=== PATIENT | female | born 1975 | race Hispanic/Latino ===

== ENCOUNTER → 2023-02-20 | Outpatient (CLI) | payer MEDICAID ==
[~2023-02-20] MED LIST: IOHEXOL-350 75 ML VIAL IV ONE
== END | disposition home or self-care (01) ==
LOC: RAH 10:30
PROVIDERS: ATTEND Internal Medicine Gastroenterology
DX: R10.9 Unspecified abdominal pain (principal); Z90.49 Acquired absence of other specified parts of digestive tract
CPT/HCPCS: 74178; Q9967